=== PATIENT | male | born 1960 | race Caucasian/White ===

== ENCOUNTER 2016-12-06 16:12 | Emergency (ER) | payer OTHER ==
[~2016-12-06] VITALS: Ht 177.8 cm; Wt 85.0 kg
[2016-12-06 16:17] VITALS: BP 130/74; PULSE 72; RESP 15; TEMP 98.4; O2SAT 98
[2016-12-06 17:30] VITALS: BP 135/66; PULSE 95; RESP 16; O2SAT 99
[2016-12-06] MEDS ORDERED: SERO100T PO (17:33)
[2016-12-06] MEDS ORDERED: ATOR40TA16 PO (17:44)
[2016-12-06] MEDS ORDERED: AMLO10TA2 PO (17:44)
[2016-12-06] MEDS ORDERED: SODIUM CHLORIDE 0.9% FLUSH 10 ML FLUSH IV FLUSH PRN (17:45)
[2016-12-06 18:33] LABS: BASOPHIL # 0.1 TH/MM3 (0-0.2); BASOPHIL % 0.6 % (0.0-2.0); EOSINOPHIL # 0.1 TH/MM3 (0-0.4); EOSINOPHIL % 1.4 % (0.0-4.0); HEMATOCRIT 45.8 % (39.0-51.0); HEMO FLAGS DIFF FINAL; LYMPHOCYTE # 1.2 TH/MM3 (1.0-4.8); MEAN CELL VOLUME 91.4 FL (80.0-100.0); MEAN CORPUSCULAR HGB CONC 33.9 % (32.0-36.0); MONO % 11.3 % (0.0-8.0); NEUT % 72.7 % (16.0-70.0); PLATELET COUNT 319 TH/MM3 (150-450); RED BLOOD COUNT 5.01 MIL/MM3 (4.50-5.90); RED CELL DISTRIBUTION WIDTH 14.7 % (11.6-17.2); WHITE BLOOD COUNT 8.3 TH/MM3 (4.0-11.0)
[2016-12-06 18:41] LABS: ALT (GPT) 57 U/L (12-78)
[2016-12-06 18:43] LABS: ALKALINE PHOSPHATASE 28 U/L (45-117); TOTAL BILIRUBIN ADULT 0.6 MG/DL (0.2-1.0)
[2016-12-06 18:46] LABS: ANION GAP 7 MEQ/L (5-15); AST (GOT) 71 U/L (15-37); BICARBONATE 26.4 MEQ/L (21.0-32.0); BLOOD UREA NITROGEN 11 MG/DL (7-18); CHLORIDE 102 MEQ/L (98-107); GLOMERULAR FILTRATION RATE 45 ML/MIN (>89); SODIUM (NA) 135 MEQ/L (136-145)
[2016-12-06 18:50] LABS: POTASSIUM 4.7 MEQ/L (3.5-5.1)
[2016-12-06] MEDS ORDERED: IOHEXOL 350 MG/ML 10 ML VIAL (for RAD DIAG) IV ONE (19:04)
--- NOTE | 2016-12-06 19:17 | RADRPT ---
EXAM DATE/TIME: 12/06/2016 19:01 [place] COMPARISON: No previous studies available for comparison. INDICATIONS : Abdominal pain with known abscess. IV CONTRAST: 97 cc Omnipaque 350 (iohexol) IV ORAL CONTRAST: No oral contrast ingested. RADIATION DOSE: 8.00 CTDIvol (mGy) MEDICAL HISTORY : None SURGICAL HISTORY : None. ENCOUNTER: Initial ACUITY: 1 week PAIN SCALE: 4/10 LOCATION: Bilateral abdomen TECHNIQUE: Volumetric scanning of the abdomen and pelvis was performed. Using automated exposure control and ad justment of the mA and/or kV according to patient size, radiation dose was kept as low as reasonably achievable to obtain optimal diagnostic quality images. DICOM format image data is available electro nically for review and comparison. FINDINGS: The lung bases demonstrate dependent atelectasis. No effusion. No acute findings in the liver, spleen, adrenals, kidneys and pancreas. No calcified gallstones or bi liary ductal dilatation. No bowel obstruction. No free air or free fluid. There is some skin thickening in the lower anterior abdominal wall, worse on the right side which may represent an area of cellulitis. No drainable fluid collections are seen. CONCLUSION: 1. No acute findings within the abdomen or pelvis. Specifically no abscess identified. 2. Skin thickening and density in the lower anterior abdominal wall, right greater left of uncertain etiology, possibly an area of cellulitis. No discrete or drainable abscess. Michelet Deleon MD on December 06, 2016 at 19:12 Board Certified Radiologist. This report was verified electronically.
[2016-12-06] MEDS ORDERED: DOXY100C PO (19:30)
--- NOTE | 2016-12-06 19:31 | PD ---
HPI Chief Complaint: Skin Problem Time Seen by Provider: 17:33 Travel History International Travel<30 days: No Contact w/Intl Traveler<30days: No Traveled to known affect area: No History of Present Illness HPI Patient is a 56-year-old male comes in complaining of an abscess to his abdominal wall. He says that he had one in August after injecting himself in that area. He says that has gotten better, but for the past week and a half, he has had an area of redness to the right side of his abdomen. He saw a primary care doctor, who put him on antibiotics, but he feels it is not getting better. He says he is traveling tomorrow and wanted to get checked out. He has not noticed any drainage to the area. He says the redness has gone down, but it seems to be more swollen. He denies fever or chills. He denies nausea or vomiting. PFSH Past Medical History Asthma: No Heart Rhythm Problems: No Cancer: No Chest Pain: No Diabetes: No Hypertension: Yes Neurologic: No Past Surgical History Surgical History: No Previous Surgery Family History Family History: Negative Social History Tobacco Use: No Allergies-Medications (Allergen,Severity, Reaction): Coded Allergies: No Known Allergies (Unverified , 12/06/16) Reported Meds & Prescriptions Reported Meds & Active Scripts Active Doxycycline Hyclate 100 Mg Cap 100 Mg PO BID Reported Amlodipine (Amlodipine Besylate) 10 Mg Tab 10 Mg PO HS Atorvastatin (Atorvastatin Calcium) 40 Mg Tab 40 Mg PO HS Seroquel (Quetiapine Fumarate) 100 Mg Tab 100 Mg PO HS Review of Systems Except as stated in HPI: all other systems reviewed are Neg General / Constitutional: No: Fever, Chills HENT: No: Headaches, Lightheadedness Cardiovascular: No: Chest Pain or Discomfort Respiratory: No: Shortness of Breath Gastrointestinal: No: Nausea, Vomiting, Abdominal Pain Genitourinary: No: Dysuria Musculoskeletal: No: Pain Skin: Positive Lesions Neurologic: No: Weakness, Dizziness Physical Exam Narrative GENERAL: Awake and alert, in no acute distress. SKIN: Focused skin assessment warm/dry. 4cm area of erythema and induration, no clear fluctuations. HEAD: Atraumatic. Normocephalic. EYES: Pupils equal and round. No scleral icterus. No injection or drainage. ENT: Mucous membranes pink and moist. NECK: Trachea midline. No JVD. CARDIOVASCULAR: Regular rate and rhythm. No murmur appreciated. RESPIRATORY: No accessory muscle use. Clear to auscultation. Breath sounds equal bilaterally. GASTROINTESTINAL: Abdomen soft, non-tender, nondistended. MUSCULOSKELETAL: No obvious deformities. No clubbing. No cyanosis. No edema. NEUROLOGICAL: Awake and alert. No obvious cranial nerve deficits. Motor grossly within normal limits. Normal speech. PSYCHIATRIC: Appropriate mood and affect; insight and judgment normal. Data Data Last Documented VS Vital Signs Date Time Temp Pulse Resp B/P Pulse Ox O2 Delivery O2 Flow Rate FiO2 12/06/16 17:30 95 16 135/66 99 Room Air 12/06/16 16:17 98.4 Orders Complete Blood Count With Diff (12/06/16 17:40) Comprehensive Metabolic Panel (12/06/16 17:40) Ct Abd/Pel W Iv Contrast(Rout) (12/06/16 17:40) Iv Access Insert/Monitor (12/06/16 17:40) Sodium Chloride 0.9% Flush (Ns Flush) (12/06/16 17:45) Iohexol 350 Inj (Omnipaque 350 Inj) (12/06/16 19:04) Labs Laboratory Tests Test 12/06/16 18:00 White Blood Count 8.3 TH/MM3 Red Blood Count 5.01 MIL/MM3 Hemoglobin 15.5 GM/DL Hematocrit 45.8 % Mean Corpuscular Volume 91.4 FL Mean Corpuscular Hemoglobin 31.0 PG Mean Corpuscular Hemoglobin 33.9 % Concent Red Cell Distribution Width 14.7 % Platelet Count 319 TH/MM3 Mean Platelet Volume 7.1 FL Neutrophils (%) (Auto) 72.7 % Lymphocytes (%) (Auto) 14.0 % Monocytes (%) (Auto) 11.3 % Eosinophils (%) (Auto) 1.4 % Basophils (%) (Auto) 0.6 % Neutrophils # (Auto) 6.0 TH/MM3 Lymphocytes # (Auto) 1.2 TH/MM3 Monocytes # (Auto) 0.9 TH/MM3 Eosinophils # (Auto) 0.1 TH/MM3 Basophils # (Auto) 0.1 TH/MM3 CBC Comment DIFF FINAL Differential Comment Sodium Level 135 MEQ/L Potassium Level 4.7 MEQ/L Chloride Level 102 MEQ/L Carbon Dioxide Level 26.4 MEQ/L Anion Gap 7 MEQ/L Blood Urea Nitrogen 11 MG/DL Creatinine 1.58 MG/DL Estimat Glomerular Filtration 45 ML/MIN Rate Random Glucose 82 MG/DL Calcium Level 8.7 MG/DL Total Bilirubin 0.6 MG/DL Aspartate Amino Transf 71 U/L (AST/SGOT) Alanine Aminotransferase 57 U/L (ALT/SGPT) Alkaline Phosphatase 28 U/L Total Protein 6.8 GM/DL Albumin 3.4 GM/DL MDM Medical Decision Making Medical Screen Exam Complete: Yes Emergency Medical Condition: Yes Differential Diagnosis cellulitis vs abscess vs folliculitis Narrative Course Patient is a 56 year old male who comes in with an abscess to his abdomen. Exam shows an area of induration. IV established, labs sent. Labs show no acute abnormalities. CT abd/pelvis performed shows an area of cellulitis, no abscess. Patient informed of the results. Antibiotics changed to doxycycline. Advised to follow up at his scheduled surgical appointment and with his PCP. Advised to return to the ED as needed for any worsening symptoms. Diagnosis Primary Impression: Cellulitis Qualified Code: L03.311 - Cellulitis of abdominal wall Patient Instructions: Cellulitis (ED), General Instructions Additional Instructions: Follow-up with your doctors and with the surgeon at her scheduled appointment. Take all of her antibiotics. Return to the ED as needed for any worsening symptoms. Scripts Doxycycline Hyclate 100 Mg [id number] Mg PO BID #20 CAP Ref 0 Prov:Maritza Ngo MD 12/06/16 Disposition: 01 DISCHARGE HOME Condition: Stable Maritza Ngo MD Dec 06, 2016 19:31
== END 2016-12-06 20:04 | disposition home or self-care (01) ==
LOC: NEPD 16:12
DX: L03.311 Cellulitis of abdominal wall (principal); I10 Essential (primary) hypertension
CPT/HCPCS: 74177; 80053; 85025; 99284; Q9967

== ENCOUNTER 2018-02-08 21:21 | Inpatient (IN) ==
--- NOTE | 2018-02-08 22:13 | ED ---
HPI General Chief complaint: Overdose Stated complaint: CARDIAC Time Seen by Provider: 02/08/18 21:35 Source: patient and EMS Mode of arrival: EMS Limitations: altered mental status History of Present Illness HPI narrative: The patient is a 57 year old male who presents to the [facility] emergency department with a history of being found by his friends unresponsive. According to ambulance services the patient's friends last saw him normal 10 minutes prior to finding him unresponsive. Upon fire rescue's arrival, the patient was found pulseless and apneic with asystole for his rhythm. CPR was started on the patient. The patient had IV access obtained and was given 1 dose of epinephrine. After 1 round of CPR the patient had a return of spontaneous circulation. The patient was intubated and the patient's blood pressure prior to arrival was 145/85, heart rate in the 1 teens, continue to be a GCS of 3 in route to this facility. The patient was noted to have pinpoint pupils on the scene. The patient was also noted to have heroin near him. On arrival, the patient was noted to be intubated, however he was having purposeful movements and was awake and alert. The patient was following commands and moving all extremities. Related Data Home Medications Medication Instructions Recorded Confirmed amlodipine 5 mg PO DAILY 02/08/18 02/08/18 atorvastatin 10 mg PO DAILY 02/08/18 02/08/18 Allergies Allergy/AdvReac Type Severity Reaction Status Date / Time No Known Allergies Allergy Verified 02/08/18 22:21 Review of Systems ROS: all other systems reviewed are negative [facility] Medical History Medical History Abscess packing removal (Acute) Depression (Acute) HTN (hypertension) (Acute) Hypercholesteremia (Acute) Surgical History Surgical History History of ankle surgery (Acute) Hx of abdominal surgery (Acute) Social History Social History Substance History: Active Abuse Second Hand Smoke Exposure: Yes Smoking Status: Never smoker How Often Do You Have a Drink Containing Alcohol: 4 or more times a week Recent Travel in [facility] within the Last 8 Weeks: No Recent Out of Country Travel within the Last 8 Weeks: No Substance Abuse Detail Heroin: Substance Use Status: Active Route Used Substance Abuse: Inhalation Reason for Use: Calm Down, Feels Good and Get High Immunization History Tetanus Immunization: Unable to Assess Exam Narrative Exam Narrative: The patient on arrival was intubated, however he was awake and alert and following commands. The patient was extubated under my guidance by the respiratory therapist while I was at the bedside. After extubating, the patient was verbal and able to state his name. The patient was aware of the year and his current location in the emergency department. He freely admits to using heroin prior to becoming unresponsive. He reports that he uses it occasionally. He reports that he snorts the heroin. He does not use IV drugs. Const General: cooperative, no acute distress and well developed Nutritional Appearance: well nourished Orientation: alert, awake and oriented x3 HENMT Head: normocephalic and atraumatic Nose: no nasal discharge and no epistaxis Mouth: moist mucous membranes Throat: posterior oropharynx normal and uvula midline Eyes Sclera: normal sclerae Pupils: PERRL Neck Neck: no meningeal signs, trachea midline and no JVD Resp Effort & Inspection: no use of accessory muscles Auscultation: clear to auscultation bilaterally Cardio Rate: tachycardic (Sinus tachycardia in the 1 teens, no pulse deficits to the extremities on simultaneous auscultation and palpation of his radial artery) Rhythm: regular rhythm Heart Sounds: no gallops, no murmurs and no rubs GI Inspection: non-distended Palpation: soft, no hepatosplenomegaly and nontender Auscultation: normal bowel sounds Skin General: dry skin (warm) Neuro General: alert, awake and oriented x3 Cranial Nerves: CN's II-XI intact bilaterally Speech: speech normal Motor: no movement abnormalities noted Sensory Exam: no sensory deficits noted Extrem General: normal to inspection (2+ pulses in all 4 extremities.), no calf tenderness, no clubbing, no cyanosis and no edema Psych Mood: congruent mood Affect: normal affect Judgment: judgment good Course Consultations Consultation #1: The patient's case including history, pertinent physical examination findings, and laboratory studies were discussed with Dr. De. It was agreed that the patient would be admitted to the safety companion's service. Initial Documented Vital Signs Pulse Oximetry 100 02/08/18 21:21 Last Documented Vital Signs Temperature 98.5 F 02/09/18 04:00 Pulse Rate 81 02/09/18 07:00 Respiratory Rate 16 02/09/18 07:00 Blood Pressure 116/70 02/09/18 07:00 Pulse Oximetry 97 02/09/18 07:00 Critical Care Time Critical Care Time: Yes Total Critical Care Time: 37 Attestation: Aggregate critical care time was 37 minutes. Time to perform other separately billable procedures was not included in the critical care time. My time did not include minutes spent treating any other patients simultaneously or on activities that did not directly contribute to the patient's treatment. The services I provided to this patient were to treat and/or prevent clinically significant deterioration that could result in: Recurrent respiratory failure, versus cardiovascular collapse from cardiac dysrhythmia I provided critical care services requiring my management, as noted below: Chart data review, documentation time, medication orders and management, vital sign assessments/reviewing monitor data, ordering and reviewing lab tests, ordering and interpreting/reviewing x-rays and diagnostic studies, care of the patient and discussion of the patient with the admitting physicians. Medical Decision Making MDM Narrative Medical decision making narrative: During the course of the patient's emergency department visit, the patient's history, examination, and differential diagnosis were reviewed with the patient. The patient was placed on a monitor car operator with oximetry and frequent blood pressure monitoring. The patient had IV access obtained and blood work sent for analysis. A diagnostic evaluation was started on this patient who had cardiopulmonary arrest. I suspect that the patient's cardiopulmonary arrest was related to hypoxemia from heroin use. The patient arrives awake and alert, following commands well being bagged to an endotracheal tube. The patient was extubated with the assistance of respiratory therapy. The patient was awake and alert and able to provide his history. He reports that he did snort heroin this evening. He reports that this is the last thing that he can recall. He reports that he occasionally snorts heroin. He denies any IV use of drugs. On review of systems otherwise, the patient denies having any chest pain, chest pressure, palpitations, recent nausea, vomiting, or diarrhea. He denies having any one-sided weakness, slurred speech, facial droop, or difficulty with word finding ability. The patient was monitored closely for any recurrence of decreased level of consciousness or hypoxemia. The patient's diagnostic studies are remarkable for a white count of 8.4, hemoglobin 16.3, platelets 266 with 14 monocytes, PT PTT within normal limits, chemistry is remarkable for a creatinine of 1.69, glucose 137, AST 263, ALT 429 which is increased compared to prior liver function tests, cardiac enzymes within normal limits, lipase elevated at 715. Alcohol level is 42. A chest x- ray revealed a 3.2 cm right lung mass. A CT scan of the brain showed no definite acute abnormality, low-density extra-axial mass seen at the left posterior fossa likely related to an arachnoid cyst, other etiologies include epidermoid cyst which could have a similar appearance. No mass-effect seen. The patient will be admitted to the intensive care unit for close monitoring after cardiopulmonary arrest. The patient's results were discussed with the patient, including the plan of care. I explained that further testing and/ or monitoring is indicated based on the patient's history, examination, and/ or laboratory findings. Therefore, I recommended admission for additional evaluation. The patient expressed understanding and was agreeable with this plan. The patient was admitted to the hospital in guarded condition and sent to a bed under the care of the safety companion's service. The patient was initially provided [-]. Medical Screen Exam Complete: Yes Emergency Medical Condition: Yes Differential Diagnosis Differential Diagnosis: Cardiopulmonary arrest from cardiac arrhythmia, versus respiratory failure from heroin use, versus acute coronary syndrome Medical Records Medical records reviewed: Yes I reviewed the patient's medical records. Lab Data Lab results reviewed: Yes I reviewed the patient's lab results. Result diagrams: 02/08/18 22:10 02/08/18 22:10 Lab Results 02/08/18 02/08/18 02/08/18 Range/Units 22:10 22:10 22:10 WBC 8.4 (4.0-11.0) th/mm3 RBC 5.03 (4.50-5.90) mil/mm3 Hgb 16.3 (13.0-17.0) gm/dL Hct 49.9 (39.0-51.0) % MCV 99.3 (80.0-100.0) fL MCH 32.5 (27.0-34.0) pg MCHC 32.7 (32.0-36.0) % RDW 14.2 (11.6-17.2) % Plt Count 266 (150-450) th/mm3 MPV 7.6 (7.0-11.0) fL Neut % (Auto) 49.2 (16.0-70.0) % Lymph % (Auto) 34.4 (9.0-44.0) % [place] % (Auto) 14.0 H (0.0-8.0) % Eos % (Auto) 1.9 (0.0-4.0) % Baso % (Auto) 0.5 (0.0-2.0) % Neut # (Auto) 4.1 (1.8-7.7) th/mm3 Lymph # (Auto) 2.9 (1.0-4.8) th/mm3 [place] # (Auto) 1.2 H (0.0-0.9) th/mm3 Eos # (Auto) 0.2 (0.0-0.4) th/mm3 Baso # (Auto) 0.0 (0.0-0.2) th/mm3 WBC Differential . Differential Comment Auto diff final PT 10.2 (9.8-11.6) sec INR 1.0 Ratio APTT 28.8 (24.3-30.1) sec Sodium (136-145) meq/L Potassium (3.5-5.1) meq/L Chloride (98-107) meq/L Carbon Dioxide (21.0-32.0) meq/L Anion Gap (5-15) meq/L BUN (7-18) mg/dL Creatinine (0.60-1.30) mg/dL Estimated GFR (>89) mL/min Random Glucose (74-106) mg/dL Calcium (8.5-10.1) mg/dL Magnesium (1.5-2.5) mg/dL Total Bilirubin (0.2-1.0) mg/dL AST (15-37) U/L ALT (12-78) U/L Alkaline Phosphatase (45-117) U/L Total Creatine Kinase (39-308) U/L CK-MB (CK-2) (0.5-3.6) ng/mL Troponin I (0.02-0.05) ng/mL B-Natriuretic Peptide 16 (0-100) pg/mL Total Protein (6.4-8.2) g/dL Albumin (3.4-5.0) g/dL Lipase (73-393) U/L Nasal Screen MRSA (PCR) (Negative) Serum Alcohol (0-5) mg/dL 02/08/18 02/09/18 Range/Units 22:10 00:57 WBC (4.0-11.0) th/mm3 RBC (4.50-5.90) mil/mm3 Hgb (13.0-17.0) gm/dL Hct (39.0-51.0) % MCV (80.0-100.0) fL MCH (27.0-34.0) pg MCHC (32.0-36.0) % RDW (11.6-17.2) % Plt Count (150-450) th/mm3 MPV (7.0-11.0) fL Neut % (Auto) (16.0-70.0) % Lymph % (Auto) (9.0-44.0) % [place] % (Auto) (0.0-8.0) % Eos % (Auto) (0.0-4.0) % Baso % (Auto) (0.0-2.0) % Neut # (Auto) (1.8-7.7) th/mm3 Lymph # (Auto) (1.0-4.8) th/mm3 [place] # (Auto) (0.0-0.9) th/mm3 Eos # (Auto) (0.0-0.4) th/mm3 Baso # (Auto) (0.0-0.2) th/mm3 WBC Differential Differential Comment PT (9.8-11.6) sec INR Ratio APTT (24.3-30.1) sec Sodium 138 (136-145) meq/L Potassium 3.6 (3.5-5.1) meq/L Chloride 100 (98-107) meq/L Carbon Dioxide 24.9 (21.0-32.0) meq/L Anion Gap 13 (5-15) meq/L BUN 10 (7-18) mg/dL Creatinine 1.69 H (0.60-1.30) mg/dL Estimated GFR 42 L (>89) mL/min Random Glucose 137 H (74-106) mg/dL Calcium 9.1 (8.5-10.1) mg/dL Magnesium 2.2 (1.5-2.5) mg/dL Total Bilirubin 1.0 (0.2-1.0) mg/dL AST 263 H (15-37) U/L ALT 429 H (12-78) U/L Alkaline Phosphatase 84 (45-117) U/L Total Creatine Kinase 227 (39-308) U/L CK-MB (CK-2) 3.8 H (0.5-3.6) ng/mL Troponin I Less than 0.02 L (0.02-0.05) ng/mL B-Natriuretic Peptide (0-100) pg/mL Total Protein 7.4 (6.4-8.2) g/dL Albumin 3.4 (3.4-5.0) g/dL Lipase 715 H (73-393) U/L Nasal Screen MRSA (PCR) Not detected (Negative) Serum Alcohol 42 H (0-5) mg/dL Imaging Data Radiologist's impression: Chest X-Ray 02/08/18 21:48 CONCLUSION: 3.2 cm right lung mass. Head CT 02/08/18 22:13 CONCLUSION: 1. No definite acute abnormality is seen. 2. Low density extra-axial mass seen at the left posterior fossa likely related to an arachnoid cyst. Other etiologies including epidermoid cyst could have a similar appearance. No mass effect is seen. . ECG Data Attestation: I personally reviewed and interpreted this ECG as follows: Interpretation: The patient had an EKG done on arrival that shows a sinus tachycardia teen, QRS duration is 80 ms, QTC 393 ms, right axis deviation is noted. No acute ST segment elevation is noted. Discharge Plan Discharge Disposition Patient Disposition: 30 Still Patient Discharge Details Diagnosis: Drug overdose, History of cardiac arrest Physicians Team ED Provider: Alana Courtney Primary Care Provider: UNKNOWN, Attending Provider: Beck De Other Providers: Rob Santacruz ; Jose Garcia Discharge Interventions Interventions: ED Discharge Assessment Last Done: 02/09/18 00:58 Status ED Status: Left Department Discharge Information Discharge Date/Time: 02/09/18 00:59
--- NOTE | 2018-02-08 22:25 | XR ---
EXAM DATE: 02/08/2018 9:48 PM EDT AGE/SEX: 57 years / Male INDICATIONS: Chest pain. CLINICAL DATA: This is the patient's initial encounter. Patient reports that signs and symptoms have been present for 1 day and indicates a pain score of 4/10. MEDICAL/SURGICAL HISTORY: None. None. COMPARISON: No prior exams available for comparison. FINDINGS: The heart size is normal. There is a 3.2 cm mass in the lateral right midlung. The left lung is clear . No effusion is seen. CONCLUSION: 3.2 cm right lung mass. Electronically signed by: Walter Vences MD 02/08/2018 10:24 PM EDT
[2018-02-08 22:37] LABS: Baso % (Auto) 0.5 % (0.0-2.0); Eos # (Auto) 0.2 th/mm3 (0.0-0.4); Eos % (Auto) 1.9 % (0.0-4.0); Hematocrit 49.9 % (39.0-51.0); Hemoglobin 16.3 gm/dL (13.0-17.0); Lymph # (Auto) 2.9 th/mm3 (1.0-4.8); Lymph % (Auto) 34.4 % (9.0-44.0); Mean Corpuscular HGB Conc 32.7 % (32.0-36.0); Mean Corpuscular Hemoglobin 32.5 pg (27.0-34.0); Mean Corpuscular Volume 99.3 fL (80.0-100.0); Mean Platelet Volume 7.6 fL (7.0-11.0); Mono # (Auto) 1.2 th/mm3 (0.0-0.9); Neut # (Auto) 4.1 th/mm3 (1.8-7.7); Neut % (Auto) 49.2 % (16.0-70.0); Platelet Count 266 th/mm3 (150-450); Red Blood Count 5.03 mil/mm3 (4.50-5.90); Red Cell Distribution Width 14.2 % (11.6-17.2); White Blood Count 8.4 th/mm3 (4.0-11.0)
[2018-02-08 22:51] LABS: Albumin 3.4 g/dL (3.4-5.0); Anion Gap 13 meq/L (5-15); Aspartate Aminotransferase 263 U/L (15-37); Blood Urea Nitrogen 10 mg/dL (7-18); Calcium 9.1 mg/dL (8.5-10.1); Carbon Dioxide 24.9 meq/L (21.0-32.0); Chloride 100 meq/L (98-107); Glomerular Filtration Rate 42 mL/min (>89); Glucose,Random 137 mg/dL (74-106); Lipase 715 U/L (73-393); Magnesium 2.2 mg/dL (1.5-2.5); Potassium 3.6 meq/L (3.5-5.1); Sodium 138 meq/L (136-145)
[2018-02-08 22:52] LABS: Alanine Aminotransferase 429 U/L (12-78)
[2018-02-08 22:54] LABS: Activated Partial Thrombo Time 28.8 sec (24.3-30.1); Prothrombin Time 10.2 sec (9.8-11.6)
[2018-02-08 22:55] LABS: Alkaline Phosphatase 84 U/L (45-117); Creatine Kinase 227 U/L (39-308); Total Protein 7.4 g/dL (6.4-8.2)
[2018-02-08 22:56] LABS: Alcohol 42 mg/dL (0-5)
--- NOTE | 2018-02-08 23:03 | CT ---
EXAM DATE: 02/08/2018 10:20 PM EDT AGE/SEX: 57 years / Male INDICATIONS: Patient found unresponsive, altered mental status. CLINICAL DATA: This is the patient's initial encounter. Patient reports that signs and symptoms have been present for 1 day and indicates a pain score of 0/10. MEDICAL/SURGICAL HISTORY: Hypertension. None. RADIATION DOSE: 40.20 CTDI (mGy) COMPARISON: No prior exams available for comparison. TECHNIQUE: CT of the head without contrast. Using automated exposure control and adjustment of the mA and/or kV according to patient size, radiation dose was kept as low as reasonably achievable to ob tain optimal diagnostic quality images. DICOM format image data is available electronically for revi ew and comparison. FINDINGS: Cerebrum: The ventricles are normal for age. No evidence of midline shift, mass lesion, hemorrhage or acute infarction. No extraaxial fluid collections are seen. Posterior Fossa: There is a 4.9 x 3.2 low-density mass at the left lateral posterior fossa. The cere bellum and brainstem are intact. The 4th ventricle is midline. The cerebellopontine angle is unrema rkable. Extracranial: The visualized portion of the orbits is intact. There is focal mucosal disease at the inferior aspect of the right maxillary sinus. Skull: The calvaria is intact. No evidence of skull fracture. CONCLUSION: 1. No definite acute abnormality is seen. 2. Low density extra-axial mass seen at the left posterior fossa likely related to an arachnoid cyst . Other etiologies including epidermoid cyst could have a similar appearance. No mass effect is seen. . Electronically signed by: Walter Vences MD 02/08/2018 11:02 PM EDT
[2018-02-08 23:09] LABS: Creatine Kinase MB 3.8 ng/mL (0.5-3.6)
[2018-02-09] MEDS ORDERED: Morphine Sulfate Inj 2 MG/ML Vial IV.PUSH PRN (00:07)
[2018-02-09] MEDS ORDERED: Acetaminophen 325 MG Tablet PO PRN (00:07)
[2018-02-09] MEDS ORDERED: Temazepam 15 MG Capsule PO PRN (00:07)
[2018-02-09] MEDS ORDERED: Bisacodyl 10 MG Supp RECTAL PRN (00:07)
[2018-02-09] MEDS ORDERED: Sod Chloride 0.9% Inj 1,000 ML IV.CONT SCH (00:15)
--- NOTE | 2018-02-09 00:17 | P.HPCC ---
History of Present Illness Primary Care Physician: UNKNOWN History of Present Illness: 57 year old male who presents with a history of being found by his friends unresponsive. According to ambulance services the patient's friends last saw him normal 10 minutes prior to finding him unresponsive. Upon fire rescue's arrival, the patient was found pulseless and apneic with asystole. CPR was started on the patient. The patient had IV access obtained and was given 1 dose of epinephrine. After 1 round of CPR the patient had a return of spontaneous circulation. The patient was intubated and the patient's blood pressure prior to arrival was 145/85, heart rate in the 1 teens, continue to be a GCS of 3 in route to this facility. The patient was noted to have pinpoint pupils on the scene. The patient was also noted to have heroin near him. On arrival, he was having purposeful movements and was awake and alert. The patient was following commands and moving all extremities and was successfully extubated in the emergency department. Due to recent cardiac arrest and altered mental status is been admitted to critical care service. Inpatient Certification: I certify that the inpatient services were ordered in accordance with Medicare regulations governing the order. This includes certification that hospital inpatient services are reasonable and necessary and in the case of services not specified as inpatient-only under 42 CFR 419.22(n), that they are appropriately provided as inpatient services in accordance to with the 2-midnight benchmark under 43 CFR 412.3(e) Estimated Total Length of Stay (Days): 5 Plans for Post Hospital Care: Not yet determined Review of Systems unobtainable due to mental condition PMFSH - History History Provided By: Patient - Medical History Medical History: Medical History (Last Reviewed 02/08/18 @ 22:21 by Alana Courtney MD) Abscess packing removal Depression HTN (hypertension) Hypercholesteremia - Surgical History Surgical History: Surgical History (Last Updated 02/08/18 @ 22:21 by Alana Courtney MD) History of ankle surgery Hx of abdominal surgery - Tobacco History Tobacco Use In Past 30 Days: No Smoking Status: Never smoker - Alcohol History How Often Do You Have a Drink Containing Alcohol: 4 or more times a week - Substance Use History Substance History: Active Abuse - Substance Use Type Heroin Status: Active Route Used: Inhalation Reason for Use: Calm Down, Feels Good, Get High - Travel History Recent Travel in the [facility] Within the Last 8 Weeks: No Recent Travel Out of the Country Within the Last 8 Weeks: No - Immunization History Tetanus Immunization: Unable to Assess Medications and Allergies Active Medications: Active Medications Acetaminophen (Tylenol) 650 mg PO Q6H PRN PRN Reason: PAIN 1-10 AND/OR FEVER >101F Albuterol (Duoneb Neb (Prn)) 1 ampul NEB Q2HR NEB PRN PRN Reason: WHEEZING Bisacodyl (Dulcolax Supp) 10 mg RECTAL DAILY PRN PRN Reason: SEVERE CONSITIPATION Chlorhexidine Gluconate (Chlorhexidine 2% Cloth) 3 pack TOPICAL DAILY@0400 [facility] Stop: 02/14/18 03:59 Chlorhexidine Gluconate (Chlorhexidine 2% Cloth) 3 pack TOPICAL DAILY@0400 PRN PRN Reason: Extra cloth needed Stop: 02/14/18 03:59 Enoxaparin Sodium (Lovenox Inj) 40 mg SQ Q24H [facility] Sodium Chloride (Ns Inj) 1,000 mls @ 84 mls/hr IV.CONT .[id number] [facility] Lactulose (Lactulose Liq) 30 ml PO DAILY PRN PRN Reason: SEVERE CONSITIPATION Morphine Sulfate (Morphine Inj) 2 mg IV.PUSH Q2H PRN PRN Reason: PAIN SCALE 6 TO 10 Ondansetron HCl (Zofran Inj) 4 mg IV.PUSH Q6H PRN PRN Reason: NAUSEA OR VOMITING Senna/Docusate Sodium (Yoko-Colace) 1 tab PO BID [facility] Sennosides (Senokot) 17.2 mg PO Q12H PRN PRN Reason: Moderate Constipation Sodium Chloride (Ns Flush) 2 ml IV.FLUSH UNSCH PRN PRN Reason: FLUSH AFTER USING IV ACCESS Sodium Chloride (Ns Flush) 2 ml IV.FLUSH BID [facility] Sodium Chloride (Ns Flush) 2 ml IV.FLUSH PRN PRN PRN Reason: FLUSH AFTER USING IV ACCESS Temazepam (Restoril) 15 mg PO HS PRN PRN Reason: INSOMNIA Allergies Allergy/AdvReac Type Severity Reaction Status Date / Time No Known Allergies Allergy Verified 02/08/18 22:21 Home Medications Medication Instructions Recorded Confirmed Type amlodipine 5 mg PO DAILY 02/08/18 02/08/18 History atorvastatin 10 mg PO DAILY 02/08/18 02/08/18 History Results - Labs CBC & Chem 7: 02/08/18 22:10 02/08/18 22:10 Labs: Short CBC 02/08/18 Range/Units 22:10 WBC 8.4 (4.0-11.0) th/mm3 Hgb 16.3 (13.0-17.0) gm/dL Hct 49.9 (39.0-51.0) % Plt Count 266 (150-450) th/mm3 BMP 02/08/18 22:10 Sodium 138 Potassium 3.6 Chloride 100 Carbon Dioxide 24.9 BUN 10 Creatinine 1.69 H Calcium 9.1 Cardiac Enzymes 02/08/18 Range/Units 22:10 Total Creatine Kinase 227 (39-308) U/L CK-MB (CK-2) 3.8 H (0.5-3.6) ng/mL Troponin I Less than 0.02 L (0.02-0.05) ng/mL Liver Function 02/08/18 Range/Units 22:10 Total Bilirubin 1.0 (0.2-1.0) mg/dL AST 263 H (15-37) U/L ALT 429 H (12-78) U/L Alkaline Phosphatase 84 (45-117) U/L Albumin 3.4 (3.4-5.0) g/dL - Imaging Impressions Chest X-Ray 02/08/18 21:48 CONCLUSION: 3.2 cm right lung mass. Head CT 02/08/18 22:13 CONCLUSION: 1. No definite acute abnormality is seen. 2. Low density extra-axial mass seen at the left posterior fossa likely related to an arachnoid cyst. Other etiologies including epidermoid cyst could have a similar appearance. No mass effect is seen. Exam Vital signs: Vital Signs 02/08/18 21:21 02/08/18 21:27 02/08/18 21:52 Temperature 97.6 F Pulse Rate 102 H Respiratory Rate 18 Blood Pressure 128/75 Pulse Oximetry 100 99 100 02/08/18 22:01 02/08/18 22:04 02/08/18 23:08 Temperature 97.6 F Pulse Rate 102 H Respiratory Rate 18 Blood Pressure 128/75 Pulse Oximetry 98 98 94 L 02/08/18 23:55 Temperature Pulse Rate 97 H Respiratory Rate 16 Blood Pressure 103/61 Pulse Oximetry 97 Intake & Output 10/01/1802/08/18 02/09/18 06:59 18:59 06:59 Weight 78.471 kg - Constitutional mild distress - Routine HEENT Exam Head: Present: normocephalic, atraumatic Eye: Present: PERRL ENT: Present: mucous membranes moist - Routine Neck Exam Present: supple, full ROM. Absent: JVD, carotid bruit - Routine Respiratory Exam Absent: accessory muscle use, rhonchi, stridor, wheezes - Routine Cardiovascular Exam Present: RRR, S1, S2. Absent: murmur, gallop, rubs - Routine Abdominal Exam Present: soft, normoactive bowel sounds. Absent: tenderness, distended - Routine Extremities Exam Absent: cyanosis, clubbing, edema - Routine Skin Exam Present: intact. Absent: cyanosis, erythema - Routine Neurological Exam Present: altered mental status, moving all extremities Septic Shock Reassessment Septic shock perfusion: reassessment completed Caprini VTE Risk Assessment Caprini VTE Risk Assessment: Moderate/High Risk (score >= 2) Caprini Risk Assessment Model: Point Value = 1 Point Value = 2 Point Value = 3 Point Value = 5 Age 41-60 Minor surgery BMI > 25 kg/m2 Swollen legs Varicose veins or History of unexplained or recurrent spontaneous Oral contraceptives or hormone replacement Sepsis (< 1 month) Serious lung disease, including pneumonia (< 1 month) Abnormal pulmonary function Acute myocardial infarction Congestive heart failure (< 1 month) History of inflammatory bowel disease Medical patient at bed rest Age 61-74 Arthroscopic surgery Major open surgery (> 45 min) Laparoscopic surgery (> 45 min) Malignancy Confined to bed (> 72 hours) Immobilizing plaster cast Central venous access Age >= 75 History of VTE Family history of VTE Factor V Leiden Prothrombin [id number] Lupus anticoagulant Anticardiolipin antibodies Elevated serum homocysteine Heparin-induced thrombocytopenia Other congenital or acquired thrombophilia Stroke (< 1 month) Elective arthroplasty Hip, pelvis, or leg fracture Acute spinal cord injury (< 1 month) Prophylaxis Regimen: Total Risk Factor Score Risk Level Prophylaxis Regimen 0-1 Low Early ambulation 2 Moderate Order ONE of the following: *Sequential Compression Device (SCD) *Heparin 5000 units SQ BID 3-4 Higher Order ONE of the following medications: *Heparin 5000 units SQ TID *Enoxaparin/Lovenox 40 mg SQ daily (WT < 150 kg, CrCl > 30 mL/min) *Enoxaparin/Lovenox 30 mg SQ daily (WT < 150 kg, CrCl > 10-29 mL/min) *Enoxaparin/Lovenox 30 mg SQ BID (WT < 150 kg, CrCl > 30 mL/min) AND/OR *Sequential Compression Device (SCD) 5 or more Highest Order ONE of the following medications: *Heparin 5000 units SQ TID (Preferred with Epidurals) *Enoxaparin/Lovenox 40 mg SQ daily (WT < 150 kg, CrCl > 30 mL/min) *Enoxaparin/Lovenox 30 mg SQ daily (WT < 150 kg, CrCl > 10-29 mL/min) *Enoxaparin/Lovenox 30 mg SQ BID (WT < 150 kg, CrCl > 30 mL/min) AND *Sequential Compression Device (SCD) Assessment and Plan - Assessment and Plan Plan: Respiratory failure -Heroin intoxication -Intubated for airway protection -Successfully extubated in the emergency department -DuoNeb's as needed -O2 nasal cannula to keep sats above 92 Altered mental status -Status post CPR due to heroine overdose into respiratory arrest -CT head negative -Monitor for withdrawal -Supportive care Lung mass -3.2 cm mass in the lateral right midlung -Pulmonary consultation Hypertension -Norvasc Elevated LFTs -Ultrasound liver Dyslipidemia -Atorvastatin DVT GI prophylaxis -Teds SCDs -Subcu Lovenox -Pepcid 35 minutes of critical care
[2018-02-09] MEDS: Enoxaparin Inj 40 MG/0.4 ML Syringe SQ SCH (01:14)
[2018-02-09] MEDS: Chlorhexidine Gluconate 2% 1 Pack (2 Cloths) TOPICAL SCH (03:10)
[2018-02-09] MEDS ORDERED: Chlorhexidine Gluconate 2% 1 Pack (2 Cloths) TOPICAL PRN (04:00)
[2018-02-09] MEDS: amLODIPine 5 MG Tablet PO SCH (08:06)
[2018-02-09] MEDS: Senna/Docusate Sodium 8.6/50 MG Tablet PO SCH ×2 (08:08→22:24)
--- NOTE | 2018-02-09 09:39 | P.CONIM ---
History of Present Illness Reason for Consult: AMS status post heroin intoxication Primary Care Provider: Dr. Mumtaz Rodriguez History of Present Illness: This is 57 year old male patient with a past medical history which includes who presents with a history of being found by his friends unresponsive. According to ambulance services the patient's friends last saw him normal 10 minutes prior to finding him unresponsive. Upon fire rescue's arrival, the patient was found pulseless and apneic with asystole. CPR was started on the patient. The patient had IV access obtained and was given 1 dose of epinephrine. After 1 round of CPR the patient had a return of spontaneous circulation. The patient was intubated and the patient's blood pressure prior to arrival was 145/85, heart rate in the 1 teens, continue to be a GCS of 3 in route to this facility. The patient was noted to have pinpoint pupils on the scene. The patient was also noted to have heroin near him. On arrival, he was having purposeful movements and was awake and alert. The patient was following commands and moving all extremities and was successfully extubated in the emergency department. Due to recent cardiac arrest and altered mental status patient was initially admitted to critical care service. We have been consulted to assume care this AM. PMH: Depression HTN (hypertension) Hypercholesteremia Gout Chronic back pain ED Sleep apnea PSxH: Left ankle surgery FMH: reviewed and patient does not recall Social history: ETOH use occasionally Illicit drug use: Heroin Review of Systems unobtainable due to mental status PMFSH - History History Provided By: Patient - Medical History Medical History: Medical History (Last Reviewed 02/08/18 @ 22:21 by Alana Courtney MD) Abscess packing removal Depression HTN (hypertension) Hypercholesteremia - Surgical History Surgical History: Surgical History (Last Updated 02/08/18 @ 22:21 by Alana Courtney MD) History of ankle surgery Hx of abdominal surgery - Tobacco History Second Hand Smoke Exposure: Yes Tobacco Use In Past 30 Days: No Smoking Status: Never smoker - Alcohol History How Often Do You Have a Drink Containing Alcohol: 4 or more times a week - Substance Use History Substance History: Active Abuse - Substance Use Type Heroin Status: Active Route Used: Inhalation Reason for Use: Calm Down, Feels Good, Get High - Travel History Recent Travel in the [facility] Within the Last 8 Weeks: No Recent Travel Out of the Country Within the Last 8 Weeks: No - Immunization History Tetanus Immunization: Unable to Assess Medications and Allergies Active Medications: Active Medications Acetaminophen (Tylenol) 650 mg PO Q6H PRN PRN Reason: PAIN 1-5 AND/OR FEVER >101F Al Hydroxide/Mg Hydroxide (Milk Of Magnesia Liq) 30 ml PO Q12H PRN PRN Reason: Mild Constipation Albuterol (Duoneb Neb (Prn)) 1 ampul NEB Q2HR NEB PRN PRN Reason: WHEEZING Amlodipine Besylate (Norvasc) 5 mg PO DAILY [facility] Last Admin: 02/09/18 08:06 Dose: 5 mg Atorvastatin Calcium (Lipitor) 10 mg PO DAILY [facility] Last Admin: 02/09/18 08:06 Dose: 10 mg Bisacodyl (Dulcolax Supp) 10 mg RECTAL DAILY PRN PRN Reason: SEVERE CONSITIPATION Chlorhexidine Gluconate (Chlorhexidine 2% Cloth) 3 pack TOPICAL DAILY@0400 [facility] Stop: 02/14/18 03:59 Last Admin: 02/09/18 03:10 Dose: 3 pack Chlorhexidine Gluconate (Chlorhexidine 2% Cloth) 3 pack TOPICAL DAILY@0400 PRN PRN Reason: Extra cloth needed Stop: 02/14/18 03:59 Enoxaparin Sodium (Lovenox Inj) 40 mg SQ Q24H [facility] Last Admin: 02/09/18 01:14 Dose: 40 mg Sodium Chloride (Ns Inj) 1,000 mls @ 84 mls/hr IV.CONT .[id number] [facility] Last Admin: 02/09/18 01:14 Dose: 84 mls/hr Lactulose (Lactulose Liq) 30 ml PO DAILY PRN PRN Reason: SEVERE CONSITIPATION Morphine Sulfate (Morphine Inj) 2 mg IV.PUSH Q2H PRN PRN Reason: PAIN SCALE 6 TO 10 Ondansetron HCl (Zofran Inj) 4 mg IV.PUSH Q6H PRN PRN Reason: NAUSEA OR VOMITING Senna/Docusate Sodium (Yoko-Colace) 1 tab PO BID [facility] Last Admin: 02/09/18 08:08 Dose: 1 tab Sennosides (Senokot) 17.2 mg PO Q12H PRN PRN Reason: Moderate Constipation Sodium Chloride (Ns Flush) 2 ml IV.FLUSH BID [facility] Last Admin: 02/09/18 08:07 Dose: 2 ml Sodium Chloride (Ns Flush) 2 ml IV.FLUSH PRN PRN PRN Reason: FLUSH AFTER USING IV ACCESS Temazepam (Restoril) 15 mg PO HS PRN PRN Reason: INSOMNIA Allergies Allergy/AdvReac Type Severity Reaction Status Date / Time No Known Allergies Allergy Verified 02/08/18 22:21 Home Medications Medication Instructions Recorded Confirmed Type amlodipine 5 mg PO DAILY 02/08/18 02/08/18 History atorvastatin 10 mg PO DAILY 02/08/18 02/08/18 History Exam Vital signs: Vital Signs 02/08/18 21:21 02/08/18 21:27 02/08/18 21:52 Temperature 97.6 F Pulse Rate 102 H Respiratory Rate 18 Blood Pressure 128/75 Pulse Oximetry 100 99 100 02/08/18 22:01 02/08/18 22:04 02/08/18 23:08 Temperature 97.6 F Pulse Rate 102 H Respiratory Rate 18 Blood Pressure 128/75 Pulse Oximetry 98 98 94 L 02/08/18 23:55 02/09/18 00:54 02/09/18 01:48 Temperature 98.1 F Pulse Rate 97 H 96 H 93 H Respiratory Rate 16 18 8 L Blood Pressure 103/61 113/61 Pulse Oximetry 97 97 97 02/09/18 02:00 02/09/18 03:00 02/09/18 04:00 Temperature 98.5 F 98.5 F Pulse Rate 94 H 91 H 92 H Respiratory Rate 8 L 12 20 Blood Pressure 105/61 104/65 110/64 Pulse Oximetry 92 L 97 98 02/09/18 05:00 02/09/18 06:00 02/09/18 07:00 Temperature Pulse Rate 85 85 81 Respiratory Rate 14 11 L 16 Blood Pressure 99/67 L 92/65 L 116/70 Pulse Oximetry 96 95 97 02/09/18 08:00 02/09/18 09:00 Temperature 97.9 F Pulse Rate 83 87 Respiratory Rate 13 19 Blood Pressure 134/82 128/79 Pulse Oximetry 98 98 Intake & Output 02/08/18 02/09/18 02/09/18 18:59 06:59 18:59 Intake Total 240 / 240 Balance 240 / 240 Weight 77.5 kg Intake: Oral 240 / 240 Other: Weight On Admission 77.5 kg Narrative: GENERAL: This is a well-nourished, well-developed patient, CARDIOVASCULAR: Regular rate and rhythm RESPIRATORY: Clear to auscultation. Breath sounds equal bilaterally. GASTROINTESTINAL: Abdomen soft, non-tender, nondistended. Normal active bowel sounds MUSCULOSKELETAL: Extremities without clubbing, cyanosis, or edema. NEURO: Moves all ext x4 Results - Labs CBC & Chem 7: 02/08/18 22:10 02/08/18 22:10 Labs: Laboratory Results - last 24 hr 02/08/18 02/08/18 02/08/18 22:10 22:10 22:10 WBC 8.4 RBC 5.03 Hgb 16.3 Hct 49.9 MCV 99.3 MCH 32.5 MCHC 32.7 RDW 14.2 Plt Count 266 MPV 7.6 Neut % (Auto) 49.2 Lymph % (Auto) 34.4 [place] % (Auto) 14.0 H Eos % (Auto) 1.9 Baso % (Auto) 0.5 Neut # (Auto) 4.1 Lymph # (Auto) 2.9 [place] # (Auto) 1.2 H Eos # (Auto) 0.2 Baso # (Auto) 0.0 WBC Differential . Differential Comment Auto diff final PT 10.2 INR 1.0 APTT 28.8 Sodium Potassium Chloride Carbon Dioxide Anion Gap BUN Creatinine Estimated GFR Random Glucose Calcium Magnesium Total Bilirubin AST ALT Alkaline Phosphatase Total Creatine Kinase CK-MB (CK-2) Troponin I B-Natriuretic Peptide 16 Total Protein Albumin Lipase Nasal Screen MRSA (PCR) Serum Alcohol 02/08/18 02/09/18 22:10 00:57 WBC RBC Hgb Hct MCV MCH MCHC RDW Plt Count MPV Neut % (Auto) Lymph % (Auto) [place] % (Auto) Eos % (Auto) Baso % (Auto) Neut # (Auto) Lymph # (Auto) [place] # (Auto) Eos # (Auto) Baso # (Auto) WBC Differential Differential Comment PT INR APTT Sodium 138 Potassium 3.6 Chloride 100 Carbon Dioxide 24.9 Anion Gap 13 BUN 10 Creatinine 1.69 H Estimated GFR 42 L Random Glucose 137 H Calcium 9.1 Magnesium 2.2 Total Bilirubin 1.0 AST 263 H ALT 429 H Alkaline Phosphatase 84 Total Creatine Kinase 227 CK-MB (CK-2) 3.8 H Troponin I Less than 0.02 L B-Natriuretic Peptide Total Protein 7.4 Albumin 3.4 Lipase 715 H Nasal Screen MRSA (PCR) Not detected Serum Alcohol 42 H - Imaging Impressions Chest X-Ray 02/08/18 21:48 CONCLUSION: 3.2 cm right lung mass. Head CT 02/08/18 22:13 CONCLUSION: 1. No definite acute abnormality is seen. 2. Low density extra-axial mass seen at the left posterior fossa likely related to an arachnoid cyst. Other etiologies including epidermoid cyst could have a similar appearance. No mass effect is seen. . Assessment and Plan - Assessment (1) History of cardiac arrest Code(s): Z86.74 - Personal history of sudden cardiac arrest Status: Acute Plan: This is 57 year old male patient with a past medical history which includes who presents with a history of being found by his friends unresponsive. According to ambulance services the patient's friends last saw him normal 10 minutes prior to finding him unresponsive. Upon fire rescue's arrival, the patient was found pulseless and apneic with asystole. CPR was started on the patient. The patient had IV access obtained and was given 1 dose of epinephrine. After 1 round of CPR the patient had a return of spontaneous circulation. The patient was intubated and the patient's blood pressure prior to arrival was 145/85, heart rate in the 1 teens, continue to be a GCS of 3 in route to this facility. The patient was noted to have pinpoint pupils on the scene. The patient was also noted to have heroin near him. On arrival, he was having purposeful movements and was awake and alert. The patient was following commands and moving all extremities and was successfully extubated in the emergency department. Due to recent cardiac arrest and altered mental status patient was initially admitted to critical care service. We have been consulted to assume care this AM. Depression/Heroin intoxication Head CT 02/08/18 1. No definite acute abnormality is seen. 2. Low density extra-axial mass seen at the left posterior fossa likely related to an arachnoid cyst. Other etiologies including epidermoid cyst could have a similar appearance. No mass effect is seen. S/P cardiac arrest consult psych Patient will need outpatient mental health after DC Lung mass Chest X-Ray 02/08/18: 3.2 cm right lung mass. -3.2 cm mass in the lateral right midlung -Pulmonary consultation Hypertension -Norvasc Elevated LFTs -Ultrasound liver Dyslipidemia -Will hold Atorvastatin due to Elevated LFTs DVT GI prophylaxis -Teds SCDs -Subcu Lovenox -Pepcid (2) Drug overdose Code(s): T50.901A - Poisoning by unspecified drugs, medicaments and biological substances, accidental (unintentional), initial encounter Status: Acute (2) Drug overdose Qualifiers: Encounter type: initial encounter Injury intent: accidental or unintentional Qualified Code(s): T50.901A - Poisoning by unspecified drugs, medicaments and biological substances, accidental (unintentional), initial encounter
--- NOTE | 2018-02-09 09:48 | ECG ---
Date Performed: 02/08/2018 Time Performed: 21:27:54 PTAGE: 57 years EKG: SINUS TACHYCARDIA MARKED RIGHT AXIS DEVIATION LOW QRS VOLTAGE IN EXTREMITY LEADS PATTERN CO NSISTENT WITH PULMONARY DISEASE ABNORMAL ECG NO PREVIOUS TRACING DOCTOR: Jerson Arshad Interpretating Date/Time 02/09/2018 09:47:02
--- NOTE | 2018-02-09 10:18 | P.PNCC ---
Subjective Subjective Remarks/Hospital Course: 57 year old male who presents with a history of being found by his friends unresponsive. According to ambulance services the patient's friends last saw him normal 10 minutes prior to finding him unresponsive. Upon fire rescue's arrival, the patient was found pulseless and apneic with asystole. CPR was started on the patient. The patient had IV access obtained and was given 1 dose of epinephrine. After 1 round of CPR the patient had a return of spontaneous circulation. The patient was intubated and the patient's blood pressure prior to arrival was 145/85, heart rate in the 1 teens, continue to be a GCS of 3 in route to this facility. The patient was noted to have pinpoint pupils on the scene. The patient was also noted to have heroin near him. On arrival, he was having purposeful movements and was awake and alert. The patient was following commands and moving all extremities and was successfully extubated in the emergency department. Due to recent cardiac arrest and altered mental status is been admitted to critical care service. 02/09: Patient has had no issues overnight since being admitted to [facility], this morning is awake and alert and has no complaints. The patient says, "I've only injected drugs maybe twice before, last night I was hanging out with some people who I haven't seen in a while and I ended up drinking, smoking cocaine, and one of my friends gave me a shot [of heroin]". He denies suicidal ideation or attempt, denies HI/ hallucinations or history of drug dependence or withdrawal. He expresses remorse regarding last night's events and says "I know that I , I won't ever do that again". Objective Vital Signs / I&O: Vital Signs 02/08/18 21:21 02/08/18 21:27 02/08/18 21:52 Temperature 97.6 F Pulse Rate 102 H Respiratory Rate 18 Blood Pressure 128/75 Pulse Oximetry 100 99 100 02/08/18 22:01 02/08/18 22:04 02/08/18 23:08 Temperature 97.6 F Pulse Rate 102 H Respiratory Rate 18 Blood Pressure 128/75 Pulse Oximetry 98 98 94 L 02/08/18 23:55 02/09/18 00:54 02/09/18 01:48 Temperature 98.1 F Pulse Rate 97 H 96 H 93 H Respiratory Rate 16 18 8 L Blood Pressure 103/61 113/61 Pulse Oximetry 97 97 97 02/09/18 02:00 02/09/18 03:00 02/09/18 04:00 Temperature 98.5 F 98.5 F Pulse Rate 94 H 91 H 92 H Respiratory Rate 8 L 12 20 Blood Pressure 105/61 104/65 110/64 Pulse Oximetry 92 L 97 98 02/09/18 05:00 02/09/18 06:00 02/09/18 07:00 Temperature Pulse Rate 85 85 81 Respiratory Rate 14 11 L 16 Blood Pressure 99/67 L 92/65 L 116/70 Pulse Oximetry 96 95 97 02/09/18 08:00 02/09/18 09:00 Temperature 97.9 F Pulse Rate 83 87 Respiratory Rate 13 19 Blood Pressure 134/82 128/79 Pulse Oximetry 98 98 Intake & Output 02/08/18 02/09/18 02/09/18 18:59 06:59 18:59 Intake Total 240 / 240 798 / 798 Balance 240 / 240 798 / 798 Weight 77.5 kg Intake: IV 798 / 798 NS Inj 1,000 ML @ 84 mls/hr IV. 798 / 798 CONT .[id number] [facility] Rx#:[id number] Oral 240 / 240 Other: Weight On Admission 77.5 kg Result Diagrams: 02/08/18 22:10 02/08/18 22:10 Objective Remarks: GEN: Well-appearing, no acute distress HEENT: NCAT, pupils 3 mm and reactive bilaterally NECK: Trachea midline CARDIO: Regular rate and rhythm, no murmurs PULM: No wheezing or rhonchi, good air entry bilaterally ABD/GI: Soft and non-tender in all quadrants EXT/ MSK: No peripheral edema SKIN: No obvious stigmata of IVDA NEURO: GCS 15, A&Ox3, conversational, no focal neuro deficits PSYCH: Calm, cooperative with exam, appropriate affect, expresses remorse regarding last night's events Assessment and Plan - Assessment and Plan Plan: 57yM presenting with respiratory arrest followed by cardiac arrest from admitted opiate overdose Respiratory arrest- resolved -Heroin intoxication -Intubated by EMS, subsequently extubated in ED, no current respiratory complaints or respiratory depression -Nebs PRN Cardiac arrest- resolved -This was clearly secondary to respiratory arrest from opiate overdose -Continue tele monitoring for today -No indication for inpatient echo or cardiac cath given no symptoms at present, but he should follow up with cardiology as an outpatient given his history of polysubstance use, hypertension, and dyslipidemia Altered mental status- resolved -Status post CPR due to heroin overdose into respiratory arrest -CT head negative -Monitor for withdrawal -Supportive care -Patient reports that this was an unintentional overdose, appears remorseful, denies SI/HI/hallucinations. He follows with a psychiatrist as an outpatient but I do not feel that he presents an acute threat to himself or others and therefore does not need inpatient psych consultation. Lung mass -3.2 cm mass in the lateral right midlung -Pulmonary consultation -Patient was not aware of this finding prior to arrival Hypertension -Norvasc Elevated LFTs -Ultrasound liver performed at [facility] within the past 2 weeks * "Impression: Gallbladder appears slightly contracted and there is minimal gallbladder wall thickening at 4.2 cm. No gallstones or biliary dilatation or pericholecystic fluid. Significance uncertain." * Continue outpatient workup Dyslipidemia -Atorvastatin DVT GI prophylaxis -Teds SCDs -Subcu Lovenox -Pepcid Level 2 follow up visit Patient will likely be discharged home tomorrow AM To help prompt me to consider important information that might be impacting today's encounter and assessment, information from prior notes written by myself or my colleagues may have been "brought forward" into today's note. My signature on this note, however, is an attestation that I personally performed the exam, history, and/or decision-making noted today, and, unless otherwise indicated, the interactions with patient, family, and staff as well as the review of records all occurred today. I also attest that the listed assessment and stated plan reflect my best clinical judgment today based on the combination of historical information, prior notes, and today's exam/ interactions. Code Status: Full
--- NOTE | 2018-02-09 10:46 | MB ---
cc: Jose Garcia MD DATE: 02/09/2018 REASON FOR CONSULTATION: Right lung mass. HISTORY OF PRESENT ILLNESS: Mr. Casper is a 57-year-old male who was found unresponsive at home with a cardiopulmonary arrest. The patient was resuscitated and successfully so, intubated and mechanically ventilated, admitted to the intensive care unit where he was extubated. Presently alert, appears in no distress. The initial cardiac arrest is felt related to drug overdose. The patient did have heroin near him when found. He denies history of shortness of breath, cough with expectoration, fever or chills. PAST MEDICAL HISTORY: Hypertension, hyperlipidemia, mood disorder, and depression. PAST SURGICAL HISTORY: Previous ankle and abdominal surgery. SOCIAL HISTORY: Does not smoke. Drinks alcohol socially, uses heroin. ALLERGIES: NONE KNOWN TO MEDICATION. MEDICATIONS: Include: 1. Tylenol. 2. Albuterol. 3. Enoxaparin prophylaxis 4. Restoril. REVIEW OF SYSTEMS: A 12-point review of systems as above in history, otherwise negative. PHYSICAL EXAMINATION: GENERAL: The patient is alert. VITAL SIGNS: Temperature 98, pulse 80, respirations 18, blood pressure 130/74. HEENT: Unremarkable. Eyes: No icterus. NECK: Without adenopathy, thyroid enlargement. Central trachea. CHEST: No numbness to percussion. Clear to auscultation. HEART: PMI not appreciated. S1, S2 audible. No murmur. No rub. ABDOMEN: Lax, bowel sounds. EXTREMITIES: No clubbing, cyanosis or edema. LABORATORY DATA: White count 8000, hemoglobin 16, hematocrit 49, platelets 266,000. Sodium 138, potassium 3.6, BUN 10, creatinine 1.6. RADIOLOGIC DATA: Chest x-ray: 3.2 cm right lung mass. CT scan of the head: Left posterior fossa cyst, no acute abnormality otherwise. IMPRESSION: 1. Right lung mass, malignancy suspect. 2. Drug overdose. 3. Status post carcinoma. 4. Cardiopulmonary arrest. 5. Hypertension. 6. Hyperlipidemia. PLAN: The patient is in intensive care unit at this time and is recovering well. Once on the medical floor, will need tissue diagnosis of the density within the right lung. Needle lung biopsy would be an appropriate next step. Meanwhile, we will check the patient's pulmonary function to assess any underlying pulmonary abnormality. Thank you for asking us to partake in Mr. Casper's care. Jose Garcia MD WWW/syl/ll , 09:30 AM , 09:39 AM
[2018-02-09 13:44] LABS: Bilirubin,Urine Negative (Negative); Clarity,Urine Hazy (Clear); Color,Urine Amber (Yellw/Straw); Glucose,Urine (UA) Negative (Negative); Hyaline Casts,Urine 41 /lpf (0-3); Leukocyte Esterase,Urine Negative (Negative); Mucus,Urine Few /lpf (Occasional); Nitrite,Urine Negative (Negative); Squamous Epithelial Cell,Urine 1 /hpf (0-5); Urobilinogen,Urine 4 or Greater mg/dL (Less than 2)
[2018-02-09 13:47] LABS: Amphetamine Screen,Urine Neg (Neg); Barbiturate Screen,Urine Neg (Neg); Cannabinoid Screen,Urine Neg (Neg); Cocaine Screen,Urine Pos (Neg)
[2018-02-09 13:59] LABS: Opiate Screen,Urine Pos (Neg)
[2018-02-10] MEDS: Enoxaparin Inj 40 MG/0.4 ML Syringe SQ SCH (00:28)
[2018-02-10] MEDS: Chlorhexidine Gluconate 2% 1 Pack (2 Cloths) TOPICAL SCH (03:05)
[2018-02-10 04:55] LABS: Baso % (Auto) 0.5 % (0.0-2.0); Eos # (Auto) 0.2 th/mm3 (0.0-0.4); Eos % (Auto) 3.3 % (0.0-4.0); Lymph # (Auto) 1.4 th/mm3 (1.0-4.8); Lymph % (Auto) 23.6 % (9.0-44.0); Mean Corpuscular HGB Conc 33.3 % (32.0-36.0); Mean Corpuscular Hemoglobin 32.7 pg (27.0-34.0); Mean Corpuscular Volume 98.1 fL (80.0-100.0); Mean Platelet Volume 7.5 fL (7.0-11.0); Mono # (Auto) 0.9 th/mm3 (0.0-0.9); Mono % (Auto) 15.9 % (0.0-8.0); Neut # (Auto) 3.3 th/mm3 (1.8-7.7); Neut % (Auto) 56.7 % (16.0-70.0); Platelet Count 219 th/mm3 (150-450); Red Blood Count 4.59 mil/mm3 (4.50-5.90); Red Cell Distribution Width 14.1 % (11.6-17.2); White Blood Count 5.9 th/mm3 (4.0-11.0)
[2018-02-10 05:02] LABS: Prothrombin Time 10.6 sec (9.8-11.6)
[2018-02-10 05:24] LABS: Alanine Aminotransferase 306 U/L (12-78); Albumin 2.8 g/dL (3.4-5.0); Alkaline Phosphatase 66 U/L (45-117); Anion Gap 8 meq/L (5-15); Aspartate Aminotransferase 155 U/L (15-37); Blood Urea Nitrogen 10 mg/dL (7-18); Calcium 8.5 mg/dL (8.5-10.1); Carbon Dioxide 30.8 meq/L (21.0-32.0); Chloride 100 meq/L (98-107); Glomerular Filtration Rate 71 mL/min (>89); Glucose,Random 67 mg/dL (74-106); Phosphorus 2.4 mg/dL (2.5-4.9); Potassium 3.6 meq/L (3.5-5.1); Sodium 139 meq/L (136-145); Total Protein 6.2 g/dL (6.4-8.2)
[2018-02-10] MEDS: amLODIPine 5 MG Tablet PO SCH (08:03)
[2018-02-10] MEDS: Senna/Docusate Sodium 8.6/50 MG Tablet PO SCH (08:03)
[2018-02-10 08:32] VITALS: O2SAT 100
[2018-02-10 08:34] VITALS: BP 115/73; RESP 21; TEMP 96.4
[2018-02-10 09:06] VITALS: PULSE 84
--- NOTE | 2018-02-10 09:49 | P.DS ---
Date of admission: 02/08/18 23:45 Primary care physician: UNKNOWN Attending physician on discharge: Claribel De La Vega Anticipated date of discharge: 02/10/18 Brief History from admission: 57 year old male who presents with a history of being found by his friends unresponsive. According to ambulance services the patient's friends last saw him normal 10 minutes prior to finding him unresponsive. Upon fire rescue's arrival, the patient was found pulseless and apneic with asystole. CPR was started on the patient. The patient had IV access obtained and was given 1 dose of epinephrine. After 1 round of CPR the patient had a return of spontaneous circulation. The patient was intubated and the patient's blood pressure prior to arrival was 145/85, heart rate in the 1 teens, continue to be a GCS of 3 in route to this facility. The patient was noted to have pinpoint pupils on the scene. The patient was also noted to have heroin near him. On arrival, he was having purposeful movements and was awake and alert. The patient was following commands and moving all extremities and was successfully extubated in the emergency department. Due to recent cardiac arrest and altered mental status is been admitted to critical care service. Patient update on day of discharge: 02/10: Patient had no events on telemetry since arriving to [facility], has been eating / drinking/ ambulating without difficulty, respiratory status has been stable since extubation yesterday. The patient offers no complaints and is requesting to be discharged. I spoke with Dr. Ba, who saw the patient yesterday for pulmonary consultation of right lung mass; he agrees that patient can follow up with him as an outpatient to schedule needle biopsy. Patient understands and agrees with plan. DS: Diagnosis - Discharge Diagnosis (1) Drug overdose Status: Resolved Diagnosis: Secondary (2) History of cardiac arrest Status: Resolved Diagnosis: Principal (3) Pulmonary mass Status: Acute DS: Summary Hospital Course: 57 year old male who presents with a history of being found by his friends unresponsive. According to ambulance services the patient's friends last saw him normal 10 minutes prior to finding him unresponsive. Upon fire rescue's arrival, the patient was found pulseless and apneic with asystole. CPR was started on the patient. The patient had IV access obtained and was given 1 dose of epinephrine. After 1 round of CPR the patient had a return of spontaneous circulation. The patient was intubated and the patient's blood pressure prior to arrival was 145/85, heart rate in the 1 teens, continue to be a GCS of 3 in route to this facility. The patient was noted to have pinpoint pupils on the scene. The patient was also noted to have heroin near him. On arrival, he was having purposeful movements and was awake and alert. The patient was following commands and moving all extremities and was successfully extubated in the emergency department. Due to recent cardiac arrest and altered mental status is been admitted to critical care service. 02/09: Patient has had no issues overnight since being admitted to [facility], this morning is awake and alert and has no complaints. The patient says, "I've only injected drugs maybe twice before, last night I was hanging out with some people who I haven't seen in a while and I ended up drinking, smoking cocaine, and one of my friends gave me a shot [of heroin]". He denies suicidal ideation or attempt, denies HI/ hallucinations or history of drug dependence or withdrawal. He expresses remorse regarding last night's events and says "I know that I , I won't ever do that again". - Time Spent with Patient Total time spent providing and/or coordinating discharge services: 35 minutes, which included reconciliation of medications, discussion with patient and examining patient, reviewing labs and consultation reports, discussion with melter supervisor oxygen furnace regarding outpatient follow-up, reviewing telemetry monitoring, and documentation. Greater than 30 minutes - Quality: VTE Deep Vein Thrombosis/Pulmonary Embolism Present on Admission: No Exam Vital signs: Vital Signs 02/09/18 10:00 02/09/18 11:00 02/09/18 12:00 Temperature 97.7 F Pulse Rate 89 91 H 94 H Respiratory Rate 30 H 16 25 H Blood Pressure 137/91 H 112/62 106/79 Pulse Oximetry 99 99 98 02/09/18 13:00 02/09/18 14:00 02/09/18 15:00 Temperature Pulse Rate 96 H 92 H 92 H Respiratory Rate 24 15 27 H Blood Pressure 111/78 112/76 116/81 Pulse Oximetry 99 100 100 02/09/18 16:00 02/09/18 17:00 02/09/18 17:04 Temperature 98.5 F Pulse Rate 93 H 90 90 Respiratory Rate 22 32 H 18 Blood Pressure 118/77 111/79 Pulse Oximetry 100 98 99 02/09/18 18:00 02/09/18 19:00 02/09/18 20:00 Temperature 98.6 F Pulse Rate 93 H 92 H 89 Respiratory Rate 21 15 13 Blood Pressure 112/77 102/65 90/60 L Pulse Oximetry 100 97 97 02/09/18 20:04 02/09/18 21:00 02/09/18 22:00 Temperature Pulse Rate 82 84 Respiratory Rate 14 14 Blood Pressure 88/53 L 78/53 L Pulse Oximetry 97 96 95 02/09/18 23:00 02/10/18 00:00 02/10/18 01:00 Temperature 98.4 F Pulse Rate 86 87 86 Respiratory Rate 12 17 15 Blood Pressure 90/60 L 93/61 L 86/55 L Pulse Oximetry 96 95 96 02/10/18 02:00 02/10/18 03:00 02/10/18 04:00 Temperature 98.5 F Pulse Rate 86 87 83 Respiratory Rate 15 11 L 20 Blood Pressure 98/58 L 119/79 117/76 Pulse Oximetry 98 99 99 02/10/18 05:00 02/10/18 06:00 02/10/18 07:00 Temperature Pulse Rate 89 84 85 Respiratory Rate 13 20 15 Blood Pressure 102/62 140/81 Pulse Oximetry 95 100 98 02/10/18 07:49 02/10/18 08:00 02/10/18 09:00 Temperature 96.4 F L Pulse Rate 85 84 Respiratory Rate 21 Blood Pressure 115/73 Pulse Oximetry 98 100 Intake & Output 02/09/18 02/10/18 02/10/18 18:59 06:59 18:59 Intake Total 3198 / 3198 480 / 480 Output Total 1450 / 1450 2049 Balance 1748 / 1748 -1570 / -1570 Weight 79 kg Intake: IV 798 / 798 NS Inj 1,000 ML @ 84 mls/hr IV. 798 / 798 CONT .[id number] [facility] Rx#:[id number] Oral 2400 / 2400 480 / 480 Output: Urine 1450 / 1450 2049 Other: # Bowel Movements 0 Narrative: GEN: Well-appearing, sitting up in bed eating breakfast, no acute distress HEENT: NCAT, pupils 3 mm and reactive bilaterally NECK: Trachea midline CARDIO: Regular rate and rhythm, no murmurs PULM: No wheezing or rhonchi, good air entry bilaterally ABD/GI: Soft and non-tender in all quadrants EXT/ MSK: No peripheral edema SKIN: No rashes or lesions NEURO: GCS 15, A&Ox3, conversational, no focal neuro deficits PSYCH: Calm, cooperative with exam, appropriate affect Results Procedures completed during hospitalization: Intubation and extubation 02/09 Pending studies at discharge: Needs outpatient follow up of right pulmonary mass Labs on day of discharge: Labs from last 24 hours 02/10/18 02/10/18 02/10/18 09:21 03:45 03:45 WBC RBC Hgb Hct MCV MCH MCHC RDW Plt Count MPV Neut % (Auto) Lymph % (Auto) Cotton % (Auto) Eos % (Auto) Baso % (Auto) Neut # (Auto) Lymph # (Auto) Cotton # (Auto) Eos # (Auto) Baso # (Auto) WBC Differential Differential Comment PT 10.6 INR 1.0 Sodium 139 Potassium 3.6 Chloride 100 Carbon Dioxide 30.8 Anion Gap 8 BUN 10 Creatinine 1.07 Estimated GFR 71 L POC Glucose 158 H Random Glucose 67 L Calcium 8.5 Phosphorus 2.4 L Magnesium 2.0 Total Bilirubin 1.1 H AST 155 H ALT 306 H Alkaline Phosphatase 66 Total Protein 6.2 L D Albumin 2.8 L D Urine Color Urine Clarity Urine pH Ur Specific [place] Urine Protein Urine Glucose (UA) Urine Ketones Urine Occult Blood Urine Nitrate Urine Bilirubin Urine Urobilinogen Ur Leukocyte Esterase Urine RBC Urine WBC Ur Squamous Epith Cells Hyaline Casts Urine Mucus Micro UA Comment Ur Microscopic Review Urine Culture Comments Urine Opiates Screen Ur Barbiturates Screen Ur Amphetamines Screen U Benzodiazepines Scrn Urine Cocaine Screen U Cannabinoids Screen 02/10/18 02/09/18 02/09/18 03:45 10:34 10:34 WBC 5.9 RBC 4.59 Hgb 15.0 Hct 45.0 MCV 98.1 MCH 32.7 MCHC 33.3 RDW 14.1 Plt Count 219 MPV 7.5 Neut % (Auto) 56.7 Lymph % (Auto) 23.6 Cotton % (Auto) 15.9 H Eos % (Auto) 3.3 Baso % (Auto) 0.5 Neut # (Auto) 3.3 Lymph # (Auto) 1.4 Cotton # (Auto) 0.9 Eos # (Auto) 0.2 Baso # (Auto) 0.0 WBC Differential . Differential Comment Auto diff final PT INR Sodium Potassium Chloride Carbon Dioxide Anion Gap BUN Creatinine Estimated GFR POC Glucose Random Glucose Calcium Phosphorus Magnesium Total Bilirubin AST ALT Alkaline Phosphatase Total Protein Albumin Urine Color Jane Urine Clarity Hazy H Urine pH 5.0 Ur Specific [place] 1.020 Urine Protein 30 H Urine Glucose (UA) Negative Urine Ketones Negative Urine Occult Blood Negative Urine Nitrate Negative Urine Bilirubin Negative Urine Urobilinogen 4 or greater Ur Leukocyte Esterase Negative Urine RBC Less than 1 Urine WBC 11 H Ur Squamous Epith Cells 1 Hyaline Casts 41 Urine Mucus Few H Micro UA Comment Culture indicated Ur Microscopic Review Not Reportable Urine Culture Comments Culture indicated Urine Opiates Screen Pos H Ur Barbiturates Screen Neg Ur Amphetamines Screen Neg U Benzodiazepines Scrn Pos H Urine Cocaine Screen Pos H U Cannabinoids Screen Neg - Impressions ITS Impressions Chest X-Ray 02/08/18 21:48 CONCLUSION: 3.2 cm right lung mass. Head CT 02/08/18 22:13 CONCLUSION: 1. No definite acute abnormality is seen. 2. Low density extra-axial mass seen at the left posterior fossa likely related to an arachnoid cyst. Other etiologies including epidermoid cyst could have a similar appearance. No mass effect is seen. . Discharge Plan - Discharge Disposition Patient Disposition: 01 Discharge Home - Discharge Condition Condition: Good - Discharge Order Discharge Orders: Discharge Order (Routine); Ordered 02/10/18 Ordered By: Claribel De La Vega - Discharge Details Anticipated Discharge Date: 02/10/18 - Physicians Team Primary Care Provider: UNKNOWN, Attending Provider: Beck De Other Providers: Jose Garcia MD
== END 2018-02-10 10:30 | disposition home or self-care (01) ==
LOC: NEPC 21:21 → NEDA 23:45 → HIMC 02-09 00:45
PROVIDERS: ADMIT Internal Medicine Critical Care Medicine; ATTEND Internal Medicine Critical Care Medicine